=== PATIENT | female | born 1965 | race Asian ===

== ENCOUNTER → 2016-10-16 | Outpatient (CLI) | payer OTHER ==
[2015-09-14 12:30] VITALS: BP 134/81
[~2016-10-16] MED LIST: LISI10TA2 PO
--- NOTE | 2016-10-16 18:14 | KCIC ---
Bilateral digital screening mammograms: Reason for examination: Routine screening. Comparison is made to previous studies dated 07/23/2015 and 04/17/2014 The skin and nipples show no abnormalities. No abnormal axillary lymph nodes are seen. The breast parenchyma shows scattered fibroglandular density. (Breast density: Category B.) There is regression of the nodules seen previously in the 1:00 B position of the left breast. There continues to be a small nodular density at the 10:00 position posteriorly in the right breast which may represent an intramammary lymph node in appears to be stable. There are no new dominant masses, suspicious calcifications or architectural distortions. Impression: No evidence of malignancy. Recommend routine screening. BI-RADS Category 2: Benign. "Our facility is accredited by the [employer] Mammography [employer]." This patient's information has been entered into a reminder system for the patient to be notified with the results of her examination and a target date for the next mammogram. Electronically signed by: Anat Stapleton MD (10/16/2016 6:11 PM) [id number]
== END | disposition home or self-care (01) ==
LOC: KCIC MAMMO 08:42
PROVIDERS: ATTEND Family Medicine
DX: Z12.31 Encounter for screening mammogram for malignant neoplasm of breast (principal)
CPT/HCPCS: G0202; 77067

== ENCOUNTER → 2017-06-27 | Outpatient (CLI) | payer OTHER | END | disposition home or self-care (01) | LOC: KCIC US 08:02 | DX: N95.0 Postmenopausal bleeding (principal); N85.00 Endometrial hyperplasia, unspecified | CPT/HCPCS: 76830; 76856 ==

== ENCOUNTER → 2017-06-27 | Outpatient (CLI) | payer OTHER | END | disposition home or self-care (01) | LOC: KCIC US 08:34 | DX: E04.1 Nontoxic single thyroid nodule (principal); E89.0 Postprocedural hypothyroidism | CPT/HCPCS: 76536 ==

== ENCOUNTER → 2017-12-19 | Outpatient (CLI) | payer OTHER ==
[2015-09-14 12:30] VITALS: BP 134/81
--- NOTE | 2017-12-19 17:02 | KCIC ---
Thyroid ultrasound HISTORY: Right thyroid nodule. Left thyroidectomy in the . Right thyroid: * Measures 5.7 cm x 2.7 cm x 2.5 cm. * Dominant mixed solid/cystic nodule in the midpole measures 16 mm x 16 mm x 11 mm. This measures smaller than on prior study, at which time it measured 2.7 cm maximum diameter. Mild vascularity identified along its periphery. * Complex mostly solid in the lower pole measures 9 mm long axis, similar appearance to prior study although measures slightly larger, on the order of up to 2 or 3 mm. * Small 3 mm hyperechoic nodule in the upper pole. * Several additional smaller subcentimeter nodules. Isthmus: * 5 mm Left thyroid: * Surgically absent. No sonographic abnormality is seen in the operative bed. IMPRESSION: 1. Dominant nodule in the mid right thyroid, measures smaller on today's exam. 2. Second nodule at the lower pole of the right thyroid demonstrates a similar appearance, but measures 2 or 3 mm larger. Electronically signed by: Mik Sharma MD (12/19/2017 4:58 PM) [facility]
== END | disposition home or self-care (01) ==
LOC: KCIC US 15:52
PROVIDERS: ATTEND Surgery
DX: E04.1 Nontoxic single thyroid nodule (principal)
CPT/HCPCS: 76536

== ENCOUNTER → 2017-12-22 | Outpatient (CLI) | payer OTHER ==
[2015-09-14 12:30] VITALS: BP 134/81
--- NOTE | 2017-12-24 08:05 | RAD ---
DATE: 12/22/2017 EXAM: DIGITAL SCREEN BILAT W/CAD HISTORY: Routine screening COMPARISON: 10/16/2016 This study was interpreted with the benefit of Computerized Aided Detection (CAD). Breast Density: SCATTERED The breast parenchyma shows scattered fibroglandular densities. Breast parenchyma level B. FINDINGS: There are small benign-appearing lymph node type densities in the lateral aspect of left breast. No spiculated mass or architectural distortion is seen. Minimal benign type calcifications present. No suspicious microcalcifications have developed. IMPRESSION: There is no mammographic evidence of malignancy in either breast. BI-RADS CATEGORY: 2 BENIGN FINDING(S) RECOMMENDED FOLLOW-UP: 12M 12 MONTH FOLLOW-UP PQRS compliance statement: Patient information was entered into a reminder system with a target due date for the next mammogram. Mammography is a sensitive method for finding small breast cancers, but it does not detect them all and is not a substitute for careful clinical examination. A negative mammogram does not negate a clinically suspicious finding and should not result in delay in biopsying a clinically suspicious abnormality. "Our facility is accredited by the [employer] Mammography [employer]."
== END | disposition home or self-care (01) ==
LOC: MAMMO 09:03
PROVIDERS: ATTEND Family Medicine
DX: Z12.31 Encounter for screening mammogram for malignant neoplasm of breast (principal)
CPT/HCPCS: 77067

== ENCOUNTER → 2019-01-17 | Outpatient (CLI) | payer OTHER ==
[2015-09-14 12:30] VITALS: BP 134/81
--- NOTE | 2019-01-17 17:48 | KCIC ---
THYROID ULTRASOUND History: Nodule follow-up Comparison: 12/19/2017 Findings: Multiple sonographic images of the thyroid gland are submitted. Right lobe measured 5.6 x 2 x 2.7 cm. The left lobe has been removed, no discrete nodularity demonstrated in this region. There is a somewhat heterogeneous solid cystic nodule of the superior right gland about 0.8 x 0.5 x 0.6 cm not seen on previous exam, small focus of associated vascularity on color Doppler imaging. There is a tiny hypoechoic lesion superiorly of the right gland and also tiny hyperechoic lesion of the mid right gland difficult to further characterize. There is somewhat smaller solid nodule of the mid to inferior right gland about 0.9 x 0.6 x 0.8 cm with some internal vascularity color Doppler imaging (previously 1.6 x 1.1 x 1.6 cm). There is very slightly larger solid heterogeneous nodule of the inferior right gland about 1 x 0.9 x 1.1 cm (previously 0.9 x 0.8 x 0.9 cm). This is associated with minimal associated internal vascularity on color Doppler imaging. Isthmus measured 0.5 cm in thickness. Impression: 1. There are right thyroid nodules with variable change as stated, new small nodule superiorly. There again has been left thyroidectomy. Electronically signed by: Jeovanny Paiz MD (01/17/2019 5:45 PM) [id number]
== END | disposition home or self-care (01) ==
LOC: KCIC US 15:45
PROVIDERS: ATTEND Surgery
DX: E04.2 Nontoxic multinodular goiter (principal)
CPT/HCPCS: 76536

== ENCOUNTER → 2019-07-29 | Outpatient (CLI) | payer OTHER ==
[2015-09-14 12:30] VITALS: BP 134/81
--- NOTE | 2019-07-29 16:03 | RAD ---
PA and lateral views of the chest. Comparison: Chest radiograph dated 09/14/2015. Indication: Endometrial adenocarcinoma Findings: Normal lung volume. Linear opacity in the left mid to lower lung zone likely related to atelectasis or scarring. No focal consolidation. Normal pulmonary vasculature. No pleural effusion. No pneumothorax. The cardiomediastinal silhouette is normal in appearance. The great vessels are normal. No acute osseous abnormality. Mild multilevel degenerative changes of the visualized spine. Impression: No acute cardiopulmonary process. Electronically signed by: Rex Jules MD (07/29/2019 4:00 PM) [id number]
== END | disposition home or self-care (01) ==
LOC: RAD 15:17
PROVIDERS: ATTEND Obstetrics & Gynecology
DX: M47.814 Spondylosis without myelopathy or radiculopathy, thoracic region (principal); Z85.42 Personal history of malignant neoplasm of other parts of uterus
CPT/HCPCS: 71046

== ENCOUNTER → 2020-09-27 | Outpatient (CLI) | payer BC ==
[2015-09-14 12:30] VITALS: BP 134/81
[~2020-09-27] MED LIST changes: +LISI10TA16 PO; -LISI10TA2 PO
--- NOTE | 2020-09-27 15:09 | KCIC ---
EXAM: XR CHEST 1V 09/27/2020 2:25 PM CLINICAL INDICATION: Endometrial adenocarcinoma 2018 COMPARISON: Chest radiograph 07/29/2019 TECHNIQUE: PA view of the chest FINDINGS: The heart and mediastinum are normal. Lungs are well-expanded. There is linear scarring o r atelectasis in the left lung base, unchanged. No consolidation, pleural effusion, or pneumothorax. Pulmonary vascularity is normal. No acute osseous abnormality. IMPRESSION: Unchanged scarring or atelectasis in the left lung base. No new abnormality. Electronically signed by: Sugey Calderon MD (09/27/2020 3:06 PM) [id number]
== END ==
LOC: KCIC 14:18
PROVIDERS: ATTEND Obstetrics & Gynecology
DX: Z85.89 Personal history of malignant neoplasm of other organs and systems (principal)
CPT/HCPCS: 71045

== ENCOUNTER → 2021-06-09 | Outpatient (CLI) | payer BC ==
[2015-09-14 12:30] VITALS: BP 134/81
--- NOTE | 2021-06-09 14:46 | KCIC ---
Bilateral digital screening mammograms with 3-D tomosynthesis: Reason for examination: Routine screening. Comparison is made to previous studies dated back to 07/23/2015. Bilateral mammograms in CC and oblique projections were obtained with 2-D imaging and 3-D tomosynthes is imaging on a Siemens Inspiration unit and reviewed on the workstation. Interpretation was made wit h the benefit of CAD. The skin and nipples show no abnormalities. No abnormal axillary lymph nodes are seen. The breast par enchyma shows scattered fatty and fibroglandular density. (Breast density: Category B.) There continu e to be small nodular parenchymal densities bilaterally which are stable. There are no new dominant m asses, suspicious calcifications or architectural distortion. Impression: No evidence of malignancy. Recommend routine screening. BI-RAD Category 2: Benign. "Our facility is accredited by the [employer] Mammography [employer]." This patient's information has been entered into a reminder system for the patient to be notified wit h the results of her examination and a target date for the next mammogram. Electronically signed by: Anat Stapleton MD (06/09/2021 2:43 PM) [id number]
== END ==
LOC: KCIC MAMMO 09:38
PROVIDERS: ATTEND Family Medicine
DX: Z12.31 Encounter for screening mammogram for malignant neoplasm of breast (principal)
CPT/HCPCS: 77063; 77067